=== PATIENT | male | born 1980 | race Caucasian/White ===

== ENCOUNTER 2022-04-18 09:13 | Outpatient (CLI) | payer MEDICARE, MEDICAID, SELFPAY ==
--- NOTE | 2022-04-18 10:50 | XRR_ITS ---
PROCEDURE INFORMATION: Exam: XR Right Hip Exam date and time: 04/18/2022 10:53 AM Age: 42 years old Clinical indication: Hip pain; Right hip; Additional info: M54.40 - lumbago with sciatica, unspecified side TECHNIQUE: Imaging protocol: Radiologic exam of the Right hip. Views: 2 or 3 views hip with pelvis when performed. COMPARISON: No relevant prior studies available. FINDINGS: Bones/joints: Unremarkable. No acute fracture. Soft tissues: Unremarkable. XR/XR hip RT 2-3V wo/w pel* [id number] IMPRESSION: No acute findings.
--- NOTE | 2022-04-18 10:50 | XRR_ITS ---
PROCEDURE INFORMATION: Exam: XR Lumbosacral Spine Exam date and time: 04/18/2022 10:53 AM Age: 42 years old Clinical indication: Low back pain; Additional info: M54.40 - lumbago with sciatica, unspecified side TECHNIQUE: Imaging protocol: Radiologic exam of the lumbosacral spine. Views: 2 or 3 views. COMPARISON: No relevant prior studies available. FINDINGS: Tubes, catheters and devices: Multiple surgical clips anterior to the lumbar vertebra. Bones/joints: 7 degree lateral curvature of the lumbar spine with the convexity to the left. There are degenerative changes throughout the visualized spine including marginal osteophyte formations, endplate degenerative changes, and facet arthropathy. Multilevel disc space narrowing most prominent across the L5-S1 level. Soft tissues: Unremarkable. XR/XR lumbar spine 2-3V* [id number] IMPRESSION: 1. There are degenerative changes as described above. No evidence for acute fracture. 2. 7 degree lateral curvature of the lumbar spine with the convexity to the left.
== END 2022-04-18 09:14 | disposition home or self-care (01) ==
LOC: RAD 04-20 09:13
PROVIDERS: Visit Provider Family Medicine
DX: M54.40 Lumbago with sciatica, unspecified side (principal); M25.551 Pain in right hip
CPT/HCPCS: 72100; 73502

== ENCOUNTER 2022-05-21 13:09 | Outpatient (CLI) | payer MEDICARE, MEDICAID, SELFPAY ==
--- NOTE | 2022-05-21 13:00 | MR_ITS ---
WS: [id number] MRI LUMBAR SPINE NONCONTRAST HISTORY: M47.816 - Spondylosis without myelopathy or radiculopathy..., Low back pain down RIGHT leg. COMPARISON: None available. TECHNIQUE: Sagittal and axial multisequence imaging is submitted. Normal lumbar alignment with no compression fractures or marrow edema. Mild disc space narrowing and desiccation at L4-5 and L5-S1. Conus terminates normally at L1. L1-L2: No stenosis. Mild asymmetric facet joint arthritis, LEFT greater than RIGHT. L2-L3: Bilateral facet joint arthritis. No stenosis. L3-L4: Mild facet joint arthritis. No stenosis. Very slight encroachment and narrowing of all of the RIGHT foramen. L4-L5: Mild annular disc bulge with a central disc protrusion and annular fissure. Mild ligamentum fl avum and facet arthritis. Mild central and bilateral foraminal and subarticular recess. L5-S1: Large central to RIGHT paracentral disc protrusion. Disc protrusion extends slightly cephalad from the disc space. There is significant contact on the thecal sac, greatest involving the RIGHT S1 nerve root. Disc measures 11 x 16 mm. Moderate central stenosis and mild bilateral foraminal stenosis . RIGHT kidney is normal. The LEFT kidney is not visualized. No history of nephrectomy was provided. MR/MR lumbar spine wo con* [id number] IMPRESSION: 1. Large central to RIGHT paracentral disc protrusion at L5-S1 causing central stenosis. Significant contact on the RIGHT S1 nerve root. 2. Mild central, bilateral foraminal and subarticular recess stenosis at L4-5. 3. 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 No history of surgi cole nephrectomy.
== END 2022-05-21 13:10 | disposition home or self-care (01) ==
LOC: RAD 13:10
PROVIDERS: PCP Family Medicine; Visit Provider Family Medicine
DX: M47.816 Spondylosis without myelopathy or radiculopathy, lumbar region (principal); M79.604 Pain in right leg; M51.27 Other intervertebral disc displacement, lumbosacral region; M48.061 Spinal stenosis, lumbar region without neurogenic claudication
CPT/HCPCS: 72148

== ENCOUNTER → 2022-06-04 09:12 | Outpatient (BNVA) | payer MEDICARE, MEDICAID, SELFPAY | PROVIDERS: PCP Family Medicine; Referring Provider Family Medicine; Visit Provider Orthopaedic Surgery | DX: M51.17 Intervertebral disc disorders with radiculopathy, lumbosacral region (principal); M48.062 Spinal stenosis, lumbar region with neurogenic claudication | CPT/HCPCS: 72120; 99204 ==

== ENCOUNTER 2022-06-26 09:40 | Day surgery (SDC) | payer MEDICARE, MEDICAID, SELFPAY ==
[2022-06-25 10:40] VITALS: BMI 22.0
[2022-06-26 09:50] VITALS: BP 143/104; PULSE 76; RESP 16; TEMP 37; O2SAT 99
--- NOTE | 2022-06-26 09:54 | W.PM.OPSUD ---
Surgery/Procedure H&P Update DATE OF PROCEDURE: June 26, 2022 DATE H&P PERFORMED: 06/04/22 H&P UPDATE INFORMATION: I have reviewed H&P completed within last 30 days, I have examined patient prior to procedure and No changes to prior documentation PREOP DIAGNOSIS: HNP L5-S1, Lumbar radiculopathy PLANNED PROCEDURE: Operation Date: 06/26/22 11:05 Proposed Procedures p Discectomy: Micro Discectomy L5/S1 28557 M48.062(Not Applicable) - Andre Tolentino DO
[2022-06-26] MEDS: sodium chloride 0.9% 1,000 ML 100 ML IV (10:00)
[2022-06-26] MEDS: clindamycin 900 MG/50 ML PREMIX 100 MG IV (10:11)
--- NOTE | 2022-06-26 10:12 | ANES.PREANE2 ---
Pre-Anesthetic Assessment Height/Weight: Height 1.73 m Weight 65.771 kg Temp Pulse Resp BP Pulse Ox O2 Del Method 98.6 F 76 16 143/104 99 06/26/22 09:50 06/26/22 09:50 06/26/22 09:50 06/26/22 09:50 06/26/22 09:50 06/26/22 09:56 Preop Diagnosis: HNP L5-S1, Lumbar radiculopathy Operation Date: 06/26/22 11:05 Proposed Procedures p Discectomy: Micro Discectomy L5/S1 44616 M48.062(Not Applicable) - Andre Tolentino DO Familial anesthetic complications: none Was Beta Courtney taken within 24 hours: N/A Was Clonidine taken within 24 hours: N/A Last intake: Intake Last Liquid Date 06/25/22 Last Liquid Time 23:00 Last Solid Date 06/25/22 Last Solid Time 18:00 Social Tobacco and No alcohol (use to drink quite a bit) Exam alert, oriented x 3 and regular rate & rhythm Airway Submandibular: within normal limits Cervical ROM: within normal limits Mallampati: Class II Dentition: false Pulmonary Asthma and Chronic Obstructive Pulmonary Disease CV/HEM Hypertension Musc/skel Lower Back Pain and Osteoarthritis/DJD Anesthetic Plan ASA status: 3 Anesthesia: General Medications/Allergies Home Medications Medication Instructions Recorded Confirmed Last Taken Type multivitamin 1 tab PO DAILY 12/05/20 06/25/22 06/24/22 History albuterol sulfate 2.5 mg/3 mL 2.5 mg (3 mL) inhalation QID PRN 10/15/21 06/25/22 06/24/22 Rx (0.083 %) solution for nebulization bronchospasm #75 mL Allergies Allergy/AdvReac Type Severity Reaction Status Date / Time erythromycin base Allergy Mild algy-hives Verified 06/25/22 10:38 Penicillins Allergy Mild ALGY-Hives Verified 06/25/22 10:38 [facility] Anesthesia Medical History Hypertension Family History Other CAD (coronary artery disease) Dementia Social History Smoking and tobacco status: current every day smoker cigarettes Packs smoked per day: 1 Alcohol intake: current Alcohol intake frequency: holidays/special occasions only Data Anesthesia Cardiac Studies: No Data to Display
--- NOTE | 2022-06-26 11:14 | XR_ITS ---
WS: [id number] Lumbar spine, C-arm fluoroscopy views, 06/26/2022 Clinical Data: OR PICS Comparison: None. Findings: Dr. Tolentino performed lumbar decompression. XR/XR lumbar spine 1V [id number] Impression: Lumbar decompression.
--- NOTE | 2022-06-26 11:18 | P.OP_ITS ---
Operative Report Date of procedure: June 26, 2022 Pre-op diagnosis: Preop Diagnosis HNP L5-S1, Lumbar radiculopathy Post-op diagnosis: same Procedure done: 1. L5/S1 Laminectomy with partial facetectomy and diskectomy Surgeon: Andre Tolentino Precipitation Equipment Tender: none Estimated blood loss (mL): 5 Procedure: 1. L5/S1 Laminectomy with partial facetectomy and diskectomy Patient is brought to the operative suite. After undergoing anesthesia they are placed in the prone position. All areas of impingement are well padded. Patient is then prepped and draped in the normal sterile fashion. A skin incision is made over the L5/S1 level. This is confirmed under c-arm guidance. A series of dilators are passed and the tubular retractor is docked on the L5 lamina. A bovie is used to clear the soft tissue off the lamina and the L 5/S1 facet joint. A high speed marsha is then used to perform the laminectomy and take down the medial aspect of the L 5/S1 facet joint. A kerrison rongeure was then used to take down the remaining lamina and smooth the edge of the laminectomy up to the point where the ligamentum flavum attaches. Attention was then brought to the medial aspect of the facet joint. The remaining medial aspect of the superior and inferior aspect of the facet joint were taken down with the kerrison from the pedicle of L5 to S1. The facet joint had significant hypertrophy. Attention was then brought to the Ligamentum Flavum. The ligament was taken down from the lamina of L5 to S1 and out medially to the remaining facet joint. The ligament was thick. The dura was then exposed. The dura was in good repair. During the retractors then placed the disc was identified. A small hole was made in the annulus of the disc. In the disc material was removed with micropituitary displaces irrigated and all loose fragments were removed. The L5 nerve was then traced with a curette out the L5/S1 foramen and found to be adequately decompressed. The S1 nerve was traced with a curette around the S1 pedicle. The lateral recess was opened with a kerrison helping to further decompress the S1 nerve. Wound is then irrigated copiously with saline and surgiflo is used to stop any bleeding. The tubular retractor is removed and the wound is closed with vicryl and monocryl suture. Glue is then used to protect the wound. A sterile dressing is then placed. Patient was then placed in the supine position and transferred to the PACU in stable condition.
[2022-06-26 11:29] VITALS: BP 153/70; PULSE 94; RESP 20; TEMP 36.1; O2SAT 99
[2022-06-26 11:34] VITALS: BP 153/79; PULSE 94; RESP 19; O2SAT 100
[2022-06-26 11:44] VITALS: BP 135/65; PULSE 92; RESP 15; TEMP 36.1; O2SAT 100
[2022-06-26 11:53] VITALS: BP 149/89; PULSE 86; RESP 16; TEMP 36.2; O2SAT 100
[2022-06-26] MEDS: HYDROcodone-acetaminophen 5-325 mg Tablet 1 TAB PO (12:08)
[2022-06-26 12:16] VITALS: BP 149/92; PULSE 77; RESP 16; O2SAT 99
--- NOTE | 2022-06-26 14:21 | ANE.PACU2 ---
Inpatient post-anesthesia follow up: Airway intact: Yes Vital signs: Temperature 97.2 F Pulse Rate 77 Respiratory Rate 16 Blood Pressure 149/92 Pulse Oximetry 99 Oxygen Delivery Me thod Room Air Oxygen Flow Rate 6 Fraction of Inspir ed Oxygen Hydration adequate: Yes Nausea and vomiting: No Pain level: 4 Mental status: Baseline
== END 2022-06-26 12:32 | disposition home or self-care (01) ==
PROVIDERS: PCP Family Medicine; Visit Provider Orthopaedic Surgery
PROC: (CPT 63030; principal; 2022-06-26 10:45)
DX: M54.16 Radiculopathy, lumbar region (principal); M48.062 Spinal stenosis, lumbar region with neurogenic claudication; J44.9 Chronic obstructive pulmonary disease, unspecified; I10 Essential (primary) hypertension; F17.210 Nicotine dependence, cigarettes, uncomplicated
CPT/HCPCS: 63030; 72020; 76000; J1100; J2250; J2405; J2704; J3010; J3490; J7030

== ENCOUNTER → 2022-07-09 11:18 | Outpatient (BNVA) | payer MEDICARE, MEDICAID, SELFPAY | PROVIDERS: PCP Family Medicine; Visit Provider Physician Assistant | DX: Z98.890 Other specified postprocedural states (principal) | CPT/HCPCS: 99024 ==

== ENCOUNTER → 2022-08-06 11:13 | Outpatient (BNVA) | payer MEDICARE, MEDICAID, SELFPAY | PROVIDERS: PCP Family Medicine; Visit Provider Physician Assistant | DX: Z98.890 Other specified postprocedural states (principal) | CPT/HCPCS: 99024 ==

== ENCOUNTER 2023-04-28 16:09 | Emergency (ER) | payer MEDICARE, MEDICAID, SELFPAY ==
[2023-04-28 16:11] VITALS: BP 163/101; PULSE 96; RESP 18; TEMP 36.9; O2SAT 98; BMI 21.2
--- NOTE | 2023-04-28 16:26 | CTR_ITS ---
PROCEDURE INFORMATION: Exam: CT Lumbar Spine Without Contrast Exam date and time: 04/28/2023 4:42 PM Age: 43 years old Clinical indication: Low back pain; Prior surgery; Surgery date: 6+ months; Surgery type: Bulging disk surgery 10 months ago, patient states t12-s2; Additional info: Fall injury TECHNIQUE: Imaging protocol: Computed tomography of the lumbar spine without contrast. Radiation optimization: All CT scans at this facility use at least one of these dose optimization techniques: automated exposure control; mA and/or kV adjustment per patient size (includes targeted exams where dose is matched to clinical indication); or iterative reconstruction. REPORTING DATA: Count of CT and Cardiac NM exams in prior 12 months: This patient has received 0 known CTs and 0 known cardiac nuclear medicine studies in the 12 months prior to the current study. COMPARISON: MR lumbar spine wo con* [id number] 05/21/2022 2:03 PM RADIATION DOSE METRICS: Total DLP (mGy-cm): 397 FINDINGS: Bones/joints: Slight retrolisthesis L5-S1. No fracture or bony destructive lesion. Previous right hemilaminectomy at L5-S1. Bulging disc and bilateral facet hypertrophy at L4-L5 and L5-S1 without stenosis definite root compression. Soft tissues: Unremarkable. CT/CT lumbar spine wo con* [id number] IMPRESSION: No acute findings.
--- NOTE | 2023-04-28 16:27 | ED_ITS ---
HPI - Back Pain/Injury General: Chief Complaint: Back Pain/Injury Stated Complaint: back pain Time Seen by Provider: 04/28/23 16:18 History of Present Illness: 43-year-old male patient comes in today for complaints of back pain radiating down the right leg. Patient reports the pain was severe causing him to lose his balance and fall due to the muscle spasm he had from it. Patient has a history of spinal fusion of his lumbar spine. Patient denies any fever or chills. Patient reports that he has had increased activity due to moving. Associated symptoms: Deny fever(s), nausea or vomiting Review of Systems Const: Denies: fever(s) Card: Denies: chest pain Resp: Denies: dyspnea GI: Denies: nausea or vomiting : Denies: difficulty urinating Musc: Reports: back pain PFS ED PFSH: Medical History Hypertension Family History Other CAD (coronary artery disease) Dementia Social History Smoking and tobacco/nicotine status: current every day tobacco/nicotine user cigarettes Packs smoked per day: 1 Alcohol intake: current Alcohol intake frequency: holidays/special occasions only Substance/Drug Use: current Physical Exam Const: COMMON NORMALS: alert HENMT: COMMON NORMALS: normocephalic HEAD & SCALP: normocephalic Neck/C-Spine: COMMON NORMALS: full ROM Chest: COMMONS NORMALS: normal inspection of the chest Resp: COMMON NORMALS: normal respiratory effort Cardio: COMMON NORMALS: regular rate RATE: regular rate GI: COMMON NORMALS: non-tender Back/Pelvis: THORACIC SPINE/UPPER BACK: Yes thoracic ROM normal LUMBAR SPINE/LOWER BACK: Yes paraspinal muscle tenderness and Yes straight leg raise positive right Extremity: COMMON NORMALS: no pedal edema Neuro: SENSORIUM/ORIENTATION: Yes alert Skin: COMMON NORMALS: turgor normal GENERAL SKIN EXAM: turgor normal Course Vital Signs: Vital signs: Vital Signs Temperature 98.4 F 04/28/23 16:11 Pulse Rate 96 04/28/23 16:11 Respiratory Rate 18 04/28/23 16:11 Blood Pressure 163/101 04/28/23 16:11 Pulse Oximetry 98 04/28/23 16:11 Oxygen Delivery Me thod Room Air 04/28/23 16:11 MDM - Back Pain/Injury Medical Decision Making Patient reports severe pain radiating down his right leg starting after moving furniture today. Patient reports the pain took him to his knees and made him fall to the ground. Patient had recent surgery of the low back at the beginning of the year. Patient appears in moderate to severe pain. On exam patient has muscle tenderness and guarding with movement of the right leg. Patient denies loss of bowel or bladder control. Vital signs are normal. Differential diagnosis includes but not limited to lumbar strain, intervertebral disc disease, facet arthritis. CT scan showed no significant compression of the spinal cord or stenosis. Hardware appeared intact. Reviewed exam with patient with recommendations for treatment and follow-up. Labs Radiology Impressions Lumbar Spine CT 04/28/23 16:26 IMPRESSION: No acute findings. All radiology interpretation(s) finalized by discharge Discharge Plan Discharge Patient Disposition: Home Clinical Impression: Low back pain with sciatica Qualifiers: Chronicity: unspecified Back pain laterality: right Sciatica laterality: sciatica of right side Qualified Code(s): M54.41 - Lumbago with sciatica, right side Condition: Stable Prescriptions: New hydrocodone-acetaminophen 5-325 mg tablet 1 tab PO Q6H PRN (Reason: pain) Qty: 10 0RF diclofenac sodium 75 mg tablet,delayed release (DR/EC) 75 mg PO BID Qty: 20 0RF Discontinued hydrocodone-acetaminophen 5-325 mg tablet 1 - 2 tab PO .Q4-6H Qty: 40 0RF No Action multivitamin Tablet 1 tab PO DAILY albuterol sulfate 2.5 mg /3 mL (0.083 %) solution for nebulization 2.5 mg inhalation QID PRN (Reason: bronchospasm) Qty: 75 4RF Discharge Orders: Discharge ED (Routine); Ordered 04/28/23 Ordered By: Pablito Brunner Referrals: Rickey Garcias DO [Primary Care Provider] - Discharge Diet: Usual diet Discharge Activity: Increase activity as tolerated Patient Instructions: Opioid Safety, Pain Management Activity Restrictions/Additional Instructions: Follow-up with primary care and 3 to 5 days for recheck. Try to stay as active as she can. Use ice or heat for pain. Use Tylenol for further pain relief. Take diclofenac routinely for pain and inflammation. Use hydrocodone for severe pain. Return to ER for new concerns. Coding Level of Care Code ED Stationary Engineer Supervisor for Brandon Carson
[2023-04-28] MEDS: HYDROmorphone 1 mg/mL INJ 1 mL IM (17:14)
[2023-04-28] MEDS: ketorolac 30 mg/mL INJ IM (17:14)
== END 2023-04-28 17:49 | disposition home or self-care (01) ==
PROVIDERS: Emergency Provider Nurse Practitioner Family; PCP Family Medicine
DX: M54.41 Lumbago with sciatica, right side (principal); I10 Essential (primary) hypertension; F17.210 Nicotine dependence, cigarettes, uncomplicated
CPT/HCPCS: 72131; 96372; 99284; J1170; J1885